=== PATIENT | male | born 1980 | race Caucasian/White ===

== ENCOUNTER 2016-11-20 19:17 | Emergency (ER) | payer OTHER ==
[~2016-11-20] VITALS: Ht 182.9 cm; Wt 107.6 kg
[2016-11-20] MEDS ORDERED: LISINOPRIL XX (19:34)
[2016-11-20] MEDS ORDERED: BENADRYL 50MG C50 MG PO (22:56)
[2016-11-20 23:10] VITALS: BP 141/106
== END 2016-11-20 23:08 | disposition home or self-care (01) | DRG 607 ==
LOC: ED 19:17
DX: L50.9 Urticaria, unspecified (principal); I10 Essential (primary) hypertension; F17.210 Nicotine dependence, cigarettes, uncomplicated

== ENCOUNTER 2018-08-01 02:06 | Emergency (ER) | payer SELFPAY ==
[~2018-08-01] VITALS: Ht 182.9 cm; Wt 116.0 kg
[~2018-08-01 02:06] MED LIST: BENADRYL 50MG C50 MG PO; LISINOPRIL XX
[2018-08-01 02:50] LABS: HEMATOCRIT 44.1 % (39.0-50.0); HEMOGLOBIN 14.8 g/dl (14.0-18.0); IMMATURE GRANULOCYTES 0.7 % (0.0-5.0); MEAN CELL VOLUME 86.1 fL CALC (80.0-100.0); MEAN CORPUSCULAR HGB 28.9 pG CALC (26.0-32.0); MEAN CORPUSCULAR HGB CONC 33.6 g/L CALC (32.0-36.0); NEUT# 5.71 thou/uL (1.82-7.42); RED BLOOD COUNT 5.12 mill/uL (4.70-6.10); RED CELL DISTRI WIDTH 11.9 % (11.5-15.5)
[2018-08-01] MEDS ORDERED: VENTOLIN HFA IN (04:21)
[2018-08-01] MEDS ORDERED: PREDNISONE10 MG PO (04:21)
[2018-08-01] MEDS ORDERED: TESSALON PER100 MG PO (04:21)
[2018-08-01 04:35] VITALS: BP 160/79
== END 2018-08-01 04:33 | disposition home or self-care (01) | DRG 203 ==
LOC: ED 02:06
PROVIDERS: Family Medicine
DX: J20.8 Acute bronchitis due to other specified organisms (principal); F17.200 Nicotine dependence, unspecified, uncomplicated; R05 Cough; R06.2 Wheezing